=== PATIENT | male | born 1975 | race Caucasian/White ===

== ENCOUNTER 2016-11-10 15:14 | Emergency (ER) | payer SELFPAY ==
--- NOTE | 2016-11-10 17:03 | ED CLINICAL REPORT ---
Clinical Report - Physicians/Mid Levels [facility] [address] [place] [address] 11/10/2016 15:17 Patient: MARYANNE PEÑA Time Seen: 16:40; initial patient contact, initial documentation, patient care assumed. Arrived- By private vehicle. Historian- patient and family. HISTORY OF PRESENT ILLNESS Chief Complaint: FEVER. This started about 5 days ago and is still present. He has had subjective fever. The patient has had muscle aches. No chest pain or altered mental status. He has had dyspnea (at night when trying to sleep). The patient has also had wheezing. He has had a moderate dry cough. Additional history - The patient has had contact with a sick family member. Symptoms of the sick contact include fever and cough. They have had similar symptoms. He is not immunocompromised. No organ transplant. No recent absolute neutrophil count. No recent hospitalization. No new medication recently administered. No history of cancer. No history of HIV illness. No indwelling line. No recent travel. No known exposure to an animal. No drug use. No alcohol recently. No Earl catheter. Similar symptoms previously: None. Recent medical care: Not recently seen/assessed. REVIEW OF SYSTEMS No sputum production, vomiting, headache, sinus pain or sore throat. All systems otherwise negative, except as recorded above. PAST HISTORY See nurses notes. PROBLEMS: Hypertension. --16:01 Maddy Watson R.N. ADDITIONAL SURGERIES: Appendectomy. --16:01 Maddy Watson R.N. SOCIAL HISTORY Never smoker. Occasional alcohol use. Not exposed to second-hand smoke at home. No drug use. No recent travel. FAMILY HISTORY Negative. ADDITIONAL NOTES The nursing notes have been reviewed with agreement regarding the chief complaint, HPI, ROS, PMH and patient medications and allergies. PHYSICAL EXAM Vital Signs: 11/10/2016 15:59 BP: 143/90. HR: 90. RR: 18. O2 saturation: 96%. Temp: 102.4 F. Have been reviewed as abnormal and appear to be correct. Blood pressure normal. Heart rate normal. Respiratory rate normal. Febrile. Oxygen saturation normal. Appearance: Alert. No acute distress. Eyes: Pupils equal, round and reactive to light. Eyes normal inspection. ENT: Ears normal. Nose normal. Pharynx normal. Uvula midline. Neck: Normal inspection. Neck supple. CVS: Normal heart rate and rhythm. Heart sounds normal. Pulses normal. Respiratory: No respiratory distress. Breath sounds normal. Chest nontender. Abdomen: Soft and nontender. Back: Normal inspection. Skin: Skin warm and dry. Normal skin color. No rash. Normal skin turgor. Extremities: Extremities exhibit normal ROM. Extremities nontender. Neuro: Oriented X 3. No motor deficit. No sensory deficit. LABS, X-RAYS, AND EKG Laboratory Tests: Rapid Influenza Screen: (MADELAINE: 11/10/2016 16:00) ( [id number] 11/10/2016 16:28) Final results SPECIMEN DESCRIPTION: NASAL Test Result Flag Units (Reference) RAPID INFLUENZA SCREEN DATE: 11/10/16 INFLUENZA A: NEGATIVE SCREEN FOR INFLUENZA A INFLUENZA B: NEGATIVE SCREEN FOR INFLUENZA B . PROGRESS AND PROCEDURES Course of Care: 11/10/2016 16:25 Temp: 99.5 F. Vital Signs: have been reviewed as normal and appear to be correct. Patient and family counseled in person regarding the patient's stable condition and diagnosis. 17:02. Differential Diagnosis: Other possible considerations: flu, uri, viral illness, bronchitis, sinusitis, pneumonia. Above considerations are based on history, physical exam and laboratory data. Differential diagnosis was discussed with patient and patient's family. Disposition: Discharged home in good and improved condition (17:02). Condition: good and stable. CLINICAL IMPRESSION Acute rhinitis. Acute fever INSTRUCTIONS Alternate Tylenol (Acetaminophen) and Motrin (Ibuprofen) for fever, temperature greater than 101 degrees orally. Take according to label instructions. Do not work today, for two days. Drink plenty of fluids for the next 24 hours until better. Warnings: GENERAL WARNINGS: Return or contact your physician immediately if your condition worsens or changes unexpectedly, if not improving as expected, or if other problems arise. Specifically return if problem worsens. Prescription Medications: Albuterol HFA oral inhaler: inhale 1 to 2 puffs every four to six hours as needed for difficulty breathing. Dispense one (1) unit. No refills. Follow-up: Follow up with your doctor in about five days as needed. Call for an appointment. Summary of care provided to patient. Understanding of the discharge instructions verbalized by patient. (Electronically signed by Noa Reynoso A.R.N.P. 11/10/2016 22:33)
--- NOTE | 2016-11-10 17:03 | ED ORDER SUMMARY ---
..... Patient: MARYANNE PEÑA OrderSheet [facility] VisitID: [id number] [place] [address] 41y, M Registration Date/Time: 11/10/2016 ORDER SHEET Weight: 112.0 kg (stated) Allergies: NKA GENERAL ORDERS: Rapid Influenza Screen (Nasal Pharyngeal) (nasal) Urgent (16:04 11/10/2016 SBalde R.N. per protocol) (16:14 TBergley) MEDICATION ORDERS: Tylenol PO 1,000 mg (NOW) (16:04 11/10/2016 SBalde R.N. per protocol) (16:11 SBalde R.N.) Ibuprofen PO 600 mg (NOW) (16:04 11/10/2016 SBalde R.N. per protocol) (16:11 SBalde R.N.) IV FLUIDS: ORDER SHEET NOTES: [Electronically signed by Artie Byrd R.N. (20:18 11/10/2016)] [Electronically signed by Noa Reynoso (22:33 11/10/2016)] [Electronically locked/signed by Artie Byrd R.N. (20:18 11/10/2016)]
--- NOTE | 2016-11-10 17:03 | ED ORDER SUMMARY ---
..... Patient: MARYANNE PEÑA OrderSheet [facility] VisitID: [id number] [place] [address] 41y, M Registration Date/Time: 11/10/2016 ORDER SHEET Weight: 112.0 kg (stated) Allergies: NKA GENERAL ORDERS: Rapid Influenza Screen (Nasal Pharyngeal) (nasal) Urgent (16:04 11/10/2016 SBalde R.N. per protocol) (16:14 TBergley) MEDICATION ORDERS: Tylenol PO 1,000 mg (NOW) (16:04 11/10/2016 SBalde R.N. per protocol) (16:11 SBalde R.N.) Ibuprofen PO 600 mg (NOW) (16:04 11/10/2016 SBalde R.N. per protocol) (16:11 SBalde R.N.) IV FLUIDS: ORDER SHEET NOTES: [Electronically signed by Artie Byrd R.N. (20:18 11/10/2016)] [Electronically signed by Noa Reynoso (22:33 11/10/2016)] [Electronically locked/signed by Artie Byrd R.N. (20:18 11/10/2016)]
--- NOTE | 2016-11-10 17:03 | ED NURSING NOTES ---
Clinical Report - Nurses [facility] [address] [place] [address] 11/10/2016 15:17 Patient: MARYANNE PEÑA TRIAGE Triage time 15:59 Nov 10 2016. Acuity: LEVEL 4. Chief Complaint: FEVER, COUGH and BODY ACHES. Alert. No acute distress. --16:03 Maddy Watson R.N. 15:59 11/10/16. BP: 143/90. HR: 90. RR: 18. O2 saturation: 96%. Temp: 102.4 F. --16:03 Maddy Watson R.N. Weight: 112 kg stated. Height/Length: 69 inches Per Patient. BMI: 36.5. --15:58 Maddy Watson R.N. Medications Hydrochlorothiazide Oral 25 mg, daily. Lisinopril Oral 10 mg, daily. --16:01 Maddy Watson R.N. Medication/allergy information source: the patient. --16:03 Maddy Watson R.N. Allergies NKA. --16: Maddy Watson R.N. History Arrived by private vehicle. Historian: patient. Accompanied by family. Primary physician (none). ( 5 days of flu like symptoms). Onset. (5 days). 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 PAST MEDICAL HX: Has not received seasonal influenza immunization. SOCIAL HX: Never smoker. Occasional alcohol use. No drug use. NUTRITIONAL RISK ASSESSMENT: The nutritional risk assessment revealed no deficiencies. FUNCTIONAL ASSESSMENT: Functional assessment: no impairments noted. LEARNING NEEDS ASSESSMENT: The learning needs assessment revealed no barriers. SKIN INTEGRITY ASSESSMENT: Skin integrity risk assessment completed. No skin integrity risk identified. --16:03 Maddy Watson R.N. PROBLEMS: Hypertension. --16:01 Maddy Watson R.N. ADDITIONAL SURGERIES: Appendectomy. --16:01 Maddy Watson R.N. Interventions ID band on patient. To waiting room. --16:03 Maddy Watson R.N. PHYSICAL ASSESSMENT GENERAL / NEURO / PSYCH: Alert. Oriented X 4. Appears in no acute distress. HEENT: Pupils equal, round and reactive to light. Mucous membranes are pink. RESPIRATORY: Respirations not labored. CVS: Pulses within normal limits. GI / : Abdomen soft and nontender. SKIN: Skin is warm and dry. --16:26 Artie Byrd R.N. NURSING PROGRESS NOTES Flu swab obtained by RN via nasal swab. --16:04 Maddy Watson R.N. 16:11 11/10/2016 Tylenol (Acetaminophen) PO 1000 mg given. Allergies verified and confirmed 5 rights. --16:11 Maddy Watson R.N. 16:11 11/10/2016 Ibuprofen PO 600 mg given. Allergies verified and confirmed 5 rights. --16:11 Maddy Watson R.N. ( medicated for fever.). --16:11 Maddy Watson R.N. Reassurance given. Two patient identifiers checked. Side rails up x 1. Bed placed in lowest position. Brakes of bed on. ( Pt in no obvious distress placed in room, with daughter). --16:26 Artie Byrd R.N. 16:25 11/10/16. Temp: 99.5 F. --16:26 Artie Byrd R.N. DISPOSITION / DISCHARGE Departure time: 1730. ( Pt ambulated on discharge verbalized understanding discharge instructions and follow up care. Pt also verbalized understanding of medication admin and follow up care). --17:31 Artie Byrd R.N. 17:30 11/10/16. BP: 128/83. HR: 84. RR: 18. O2 saturation: 97%. Temp: 98.9 F. Pain level now 10. --17:31 Artie Byrd R.N. Locked/Released at 11/10/2016 20:18 by Artie Byrd R.N.
--- NOTE | 2016-11-10 17:03 | ED NURSING NOTES ---
Clinical Report - Nurses [facility] [address] [place] [address] 11/10/2016 15:17 Patient: MARYANNE PEÑA TRIAGE Triage time 15:59 Nov 10 2016. Acuity: LEVEL 4. Chief Complaint: FEVER, COUGH and BODY ACHES. Alert. No acute distress. --16:03 Maddy Watson R.N. 15:59 11/10/16. BP: 143/90. HR: 90. RR: 18. O2 saturation: 96%. Temp: 102.4 F. --16:03 Maddy Watson R.N. Weight: 112 kg stated. Height/Length: 69 inches Per Patient. BMI: 36.5. --15:58 Maddy Watson R.N. Medications Hydrochlorothiazide Oral 25 mg, daily. Lisinopril Oral 10 mg, daily. --16:01 Maddy Watson R.N. Medication/allergy information source: the patient. --16:03 Maddy Watson R.N. Allergies NKA. --16: Maddy Watson R.N. History Arrived by private vehicle. Historian: patient. Accompanied by family. Primary physician (none). ( 5 days of flu like symptoms). Onset. (5 days). 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 PAST MEDICAL HX: Has not received seasonal influenza immunization. SOCIAL HX: Never smoker. Occasional alcohol use. No drug use. NUTRITIONAL RISK ASSESSMENT: The nutritional risk assessment revealed no deficiencies. FUNCTIONAL ASSESSMENT: Functional assessment: no impairments noted. LEARNING NEEDS ASSESSMENT: The learning needs assessment revealed no barriers. SKIN INTEGRITY ASSESSMENT: Skin integrity risk assessment completed. No skin integrity risk identified. --16:03 Maddy Watson R.N. PROBLEMS: Hypertension. --16:01 Maddy Watson R.N. ADDITIONAL SURGERIES: Appendectomy. --16:01 Maddy Watson R.N. Interventions ID band on patient. To waiting room. --16:03 Maddy Watson R.N. PHYSICAL ASSESSMENT GENERAL / NEURO / PSYCH: Alert. Oriented X 4. Appears in no acute distress. HEENT: Pupils equal, round and reactive to light. Mucous membranes are pink. RESPIRATORY: Respirations not labored. CVS: Pulses within normal limits. GI / : Abdomen soft and nontender. SKIN: Skin is warm and dry. --16:26 Artie Byrd R.N. NURSING PROGRESS NOTES Flu swab obtained by RN via nasal swab. --16:04 Maddy Watson R.N. 16:11 11/10/2016 Tylenol (Acetaminophen) PO 1000 mg given. Allergies verified and confirmed 5 rights. --16:11 Maddy Watson R.N. 16:11 11/10/2016 Ibuprofen PO 600 mg given. Allergies verified and confirmed 5 rights. --16:11 Maddy Watson R.N. ( medicated for fever.). --16:11 Maddy Watson R.N. Reassurance given. Two patient identifiers checked. Side rails up x 1. Bed placed in lowest position. Brakes of bed on. ( Pt in no obvious distress placed in room, with daughter). --16:26 Artie Byrd R.N. 16:25 11/10/16. Temp: 99.5 F. --16:26 Artie Byrd R.N. DISPOSITION / DISCHARGE Departure time: 1730. ( Pt ambulated on discharge verbalized understanding discharge instructions and follow up care. Pt also verbalized understanding of medication admin and follow up care). --17:31 Artie Byrd R.N. 17:30 11/10/16. BP: 128/83. HR: 84. RR: 18. O2 saturation: 97%. Temp: 98.9 F. Pain level now 10. --17:31 Artie Byrd R.N. Locked/Released at 11/10/2016 20:18 by Artie Byrd R.N.
--- NOTE | 2016-11-10 22:34 | ED DISCHARGE INSTRUCTIONS ---
Patient: MARYANNE PEÑA General Instructions [facility] VisitID: [id number] [place] [address] 41y, M Registration Date/Time: 11/10/2016 Acute rhinitis. Acute fever INSTRUCTIONS Alternate Tylenol (Acetaminophen) and Motrin (Ibuprofen) for fever, temperature greater than 101 degrees orally. Take according to label instructions. Do not work today, for two days. Drink plenty of fluids for the next 24 hours until better. Warnings: GENERAL WARNINGS: Return or contact your physician immediately if your condition worsens or changes unexpectedly, if not improving as expected, or if other problems arise. Specifically return if problem worsens. Prescription Medications: Albuterol HFA oral inhaler: inhale 1 to 2 puffs every four to six hours as needed for difficulty breathing. Dispense one (1) unit. No refills. Follow-up: Follow up with your doctor in about five days as needed. Call for an appointment. Summary of care provided to patient. Understanding of the discharge instructions verbalized by patient. ADDITIONAL INFORMATION Febrile Illness, Uncertain Cause (Adult) You have a fever, but the cause is not certain. A fever is a natural reaction of the body to an illness such as infections due to a virus or bacteria. In most cases, the temperature itself is not harmful. It actually helps the body fight infections. A fever does not need to be treated unless you feel very uncomfortable. Sometimes a fever can be an early sign of a more serious infection. Therefore, you should watch for the signs listed below. Home Care: If signs and symptoms are severe, rest at home for the first 2-3 days. When you resume activity, don't let yourself get too tired. Stay away from cigarette smoke (yours and other peoples). You may use acetaminophen (Tylenol) or ibuprofen (Motrin, Advil) to control fever or pain, unless another medicine was prescribed. NOTE: If you have chronic liver or kidney disease or ever had a stomach ulcer or GI bleeding, talk with your doctor before using these medicines. (Aspirin should never be used in anyone under 18 years of age who is ill with a fever. It may cause severe liver damage.) Your appetite may be poor, so a light diet is fine. Avoid dehydration by drinking 6-8 glasses of fluid per day (water, sport drinks such as Gatorade, sodas without caffeine, juices, tea, soup). Extra fluid will help loosen secretions in the nose and lungs. Wqnw-cqo-kagfmxv products will not shorten the duration of the illness but may be helpful for the following symptoms: cough (Robitussin DM); sore throat (Chloraseptic lozenges or spray); nasal and sinus congestion (Actifed or Sudafed). NOTE: Do not use decongestants if you have high blood pressure. Follow Up with your doctor or as advised if you do not start to improve over the next week. Get Prompt Medical Attention if any of the following occur: Cough with lots of colored sputum (mucus) or blood in your sputum Chest pain, shortness of breath, wheezing or difficulty breathing Severe headache, face, neck, throat or ear pain Feeling drowsy or confused Abdominal pain, repeated vomiting or diarrhea Joint pain or a new rash Burning when urinating Fever of 100.4F (38C) oral or higher, not better with fever medication Feeling weak or dizzy Convulsion Taking Your Child's Temperature If your child feels hot, then check the temperature. Under 3 months : Start with a AXILLARY temperature. If it is above 99.0 F (37.2 C), take a RECTAL temperature. 3 months to 4 years : Measure a RECTAL temperature, or an EAR temperature. Over 4 years : Measure an ORAL temperature. Rectal Temperature is the most accurate. Ear temperature is not as accurate as a rectal or oral temperature, but is more convenient and can be used in the 3 month to 4 year old. Other methods such as plastic strips , forehead devices , and pacifier thermometers are even less accurate and they are not recommended. If you do not know how to use a thermometer, ask your nurse or pharmacist. Oral Method: Normal: 98.6 F (37.0 C). Range of normal: Up to 99.0 F (37.2 C). Recommended Age: Use this method for children older than 4 or 5 years of age, only if cooperative. 1) Wait at least 20 minutes after drinking or eating before taking an oral temperature. 2) Place the tip of a the thermometer under the child's tongue. 3) Have child close lips gently, without biting on the thermometer. 4) Keep under the tongue until the thermometer beeps. 5) Remove thermometer and read the temperature in the display. 6) Clean the thermometer with alcohol, or soap and water after each use. Axillary Method (UNDER THE ARM): Normal: 97.6 F (36.6 C) Range of Normal: Up to 98.6 F (37.0 C) Recommended Age: Use this method for children under 4 years of age or any uncooperative child. 1) Make sure armpit is dry and the child does not have clothing between arm and chest. 2) Place the tip of the thermometer high up in the armpit. 4) Hold the child's arm snug against their body with the thermometer in place until it beeps. 5) Remove thermometer and read the temperature in the display. 6) Clean the thermometer with alcohol, or soap and water after each use. Rectal Method: Normal: 99.6 F (37.6 C). Range of Normal: Up to 100.4 F (38.0 C). Recommended age: Use this method for children under 4 years of age or any uncooperative child. 1) Lubricate the tip of a rectal thermometer with a lubricant such as Vaseline jelly or K-Y jelly. 2) Lay your child face down across your lap, or on his/her side with knees bent toward the chest. Spread buttocks so that the anus can be easily seen. 3) Hold the thermometer between your thumb and index finger with the edge of your hand resting on the buttocks. Slowly and gently insert thermometer into the anus about one inch. The tip should slide in easily. Do not force it since they may cause injury. 4) Do not let go of the thermometer! Hold it carefully in place until it beeps. 5) Remove thermometer and read the temperature in the display. 6) Clean the thermometer with alcohol, or soap and water after each use. When To Seek Help Call your doctor or return here if you have an younger than 3 months with a temperature of 100.4 F (38.0 C) or an older child with a fever higher than 104.0 F (40.0 C). Viral Respiratory Illness [Adult] You have an Upper Respiratory Illness (URI) caused by a virus. This illness is contagious during the first few days. It is spread through the air by coughing and sneezing or by direct contact (touching the sick person and then touching your own eyes, nose or mouth). Most viral illnesses go away within 7-10 days with rest and simple home remedies. Sometimes, the illness may last for several weeks. Antibiotics will not kill a virus and are generally not prescribed for this condition. Home Care: 1) If symptoms are severe, rest at home for the first 2-3 days. When you resume activity, don't let yourself get too tired. 2) Avoid being exposed to cigarette smoke (yours or others). 3) Tylenol (acetaminophen) or ibuprofen (Advil, Motrin) will help fever, muscle aching and headache. (Persons under 18 with fever should not take aspirin since this may cause liver damage.) 4) Your appetite may be poor, so a light diet is fine. Avoid dehydration by drinking 6-8 glasses of fluids per day (water, soft drinks, juices, tea, soup). Extra fluids will help loosen secretions in the nose and lungs. 5) Cnpm-qvn-[id number] cold medicines will not shorten the length of time youre sick, but they may be helpful for the following symptoms: cough (Robitussin DM); sore throat (Chloraseptic lozenges or spray); nasal and sinus congestion (Actifed, Sudafed, Chlortrimeton). Follow Up with your doctor or as advised if you dont improve over the next week. Get Prompt Medical Attention if any of the following occur: -- Cough with lots of colored sputum (mucus) or blood in your sputum -- Chest pain, shortness of breath, wheezing or have trouble breathing -- Severe headache; face, neck or ear pain -- Fever over 100.4 F (38.0 C) for more than three days -- You cant swallow due to throat pain Viral Respiratory Illness W/ Wheezing [Adult] You have an Upper Respiratory Illness (URI) caused by a virus. This illness is contagious during the first few days. It is spread through the air by coughing and sneezing or by direct contact (touching the sick person and then touching your own eyes, nose or mouth). When the infection causes a lot of irritation, the air passages can go into spasm. This causes wheezing and shortness of breath. Most viral illnesses resolve within 7-10 days with rest and simple home remedies, although the illness may sometimes last for several weeks. Antibiotics will not kill a virus and are generally not prescribed for this condition. Home Care: If symptoms are severe, rest at home for the first 2-3 days. When resuming activity, don't let yourself become overly tired. Avoid exposure to cigarette smoke (yours or others). You may use acetaminophen (Tylenol) or ibuprofen (Motrin, Advil) to control pain, unless another medicine was prescribed. [NOTE: If you have chronic liver or kidney disease or ever had a stomach ulcer or GI bleeding, talk with your doctor before using these medicines.] (Aspirin should never be used in anyone under 18 years of age who is ill with a fever. It may cause severe liver damage.) Your appetite may be poor so a light diet is fine. Avoid dehydration by drinking 6-8 glasses of fluids per day (water, soft drinks, juices, tea, soup). Extra fluids will help loosen secretions in the nose and lungs. [id number]-yql-[id number] cold medicines will not shorten the duration of the illness, but may be helpful for the following symptoms: cough (Robitussin DM); sore throat (Chloraseptic lozenges or spray); nasal and sinus congestion (Actifed or Sudafed). [NOTE: Do not use decongestants if you have high blood pressure.] Follow Up with your doctor or as advised if you are not improving over the next week. Get Prompt Medical Attention if any of the following occur: Cough with lots of colored sputum (mucus) or blood in your sputum Chest pain, shortness of breath, wheezing or difficulty breathing Severe headache; face, neck or ear pain Fever of 100.4F (38C) or higher, or as directed by your healthcare provider Unable to swallow due to throat pain Fever Control (Adult) A fever is a natural reaction of the body to an illness. In most cases, the temperature itself is not harmful. It actually helps the body fight infections. A fever does not need to be treated unless you feel very uncomfortable. Home Care If you feel warm, check your temperature. If you feel very uncomfortable and your temperature is at or higher than 100.4F (38C) oral, you may take acetaminophen (Tylenol) every 4 to 6 hours. If you cant take or keep down oral medicine, ask your pharmacist for Tylenol suppositories, which you can get without a prescription. If the fever does not respond to acetaminophen within 1 hour, take ibuprofen (Advil or Motrin). If this works, keep taking the ibuprofen every 6 to 8 hours. Note: If you have chronic liver or kidney disease or ever had a stomach ulcer or GI bleeding, talk with your doctor before using these medications. If either medication alone does not keep the fever down, you may alternate the two medicines every 3 to 4 hours, only if your healthcare provider has instructed you to do so. For example, take Motrin then wait 3 hours, take Tylenol then wait 3 hours, take Motrin, and so on. Follow your healthcare providers instructions exactly. Clothing: Keep clothing light because excess body heat is lost through the skin. The fever will go up if you wear extra layers or wrap in blankets. Fluids: Fever causes the body to lose water through evaporation. Drink plenty of fluids such as water, juice, clear sodas, gamaliel leonides, or lemonade. Do not use aspirin in anyone under 18 years of age who is ill with a fever. It can cause severe liver damage. Follow Up with your doctor or as advised by our staff if you do not get better after 48 hours. Get Prompt Medical Attention if any of the following occur: Fever does not get better after taking fever medication Fast or difficult breathing Earache, sinus pain, stiff or painful neck, headache, repeated diarrhea or vomiting You feel unusually irritable, drowsy, or confused A rash appears You feel weak or dizzy, or that you might faint Albuterol Sulfate Pressurized inhalation, suspension What is this medicine? ALBUTEROL (al BYOO ter ole) is a bronchodilator. It helps open up the airways in your lungs to make it easier to breathe. This medicine is used to treat and to prevent bronchospasm. How should I use this medicine? This medicine is for inhalation through the mouth. Follow the directions on your prescription label. Take your medicine at regular intervals. Do not use more often than directed. Make sure that you are using your inhaler correctly. Ask you doctor or health care provider if you have any questions. Talk to your tube sorter regarding the use of this medicine in children. Special care may be needed. What side effects may I notice from receiving this medicine? Side effects that you should report to your doctor or health hospice spiritual care coordinator as soon as possible: allergic reactions like skin rash, itching or hives, swelling of the face, lips, or tongue breathing problems chest pain feeling faint or lightheaded, falls high blood pressure irregular heartbeat fever muscle cramps or weakness pain, tingling, numbness in the hands or feet vomiting Side effects that usually do not require medical attention (report to your doctor or health hospice spiritual care coordinator if they continue or are bothersome): cough difficulty sleeping headache nervousness or trembling stomach upset stuffy or runny nose throat irritation unusual taste What may interact with this medicine? anti-infectives like chloroquine and pentamidine caffeine cisapride diuretics medicines for colds medicines for depression or for emotional or psychotic conditions medicines for weight loss including some herbal products methadone some antibiotics like clarithromycin, erythromycin, levofloxacin, and linezolid some heart medicines steroid hormones like dexamethasone, cortisone, hydrocortisone theophylline thyroid hormones What if I miss a dose? If you miss a dose, use it as soon as you can. If it is almost time for your next dose, use only that dose. Do not use double or extra doses. Where should I keep my medicine? Keep out of the reach of children. Store at room temperature between 15 and 30 degrees C (59 and 86 degrees F). The contents are under pressure and may burst when exposed to heat or flame. Do not freeze. This medicine does not work as well if it is too cold. Throw away any unused medicine after the expiration date. Inhalers need to be thrown away after the labeled number of puffs have been used or by the expiration date; whichever comes first. Ventolin HFA should be thrown away 12 months after removing from foil pouch. Check the instructions that come with your medicine. What should I tell my health care provider before I take this medicine? They need to know if you have any of the following conditions: diabetes heart disease or irregular heartbeat high blood pressure pheochromocytoma seizures thyroid disease an unusual or allergic reaction to albuterol, levalbuterol, sulfites, other medicines, foods, dyes, or preservatives or trying to get breast-feeding What should I watch for while using this medicine? Tell your doctor or health hospice spiritual care coordinator if your symptoms do not improve. Do not use extra albuterol. If your asthma or bronchitis gets worse while you are using this medicine, call your doctor right away. If your mouth gets dry try chewing sugarless gum or sucking hard candy. Drink water as directed. You have been given the following additional information: Febrile Illness, Uncertain Cause (Adult) Thermometer Use Uri, Viral, No Abx (Adult) Uri, Viral W/ Wheezing (Adult) Fever Control (Adult) Albuterol Sulfate Pressurized inhalation, suspension Do not work today, for two days. (Electronically signed by Noa Reynoso A.R.N.P. 11/10/2016 22:33)
--- NOTE | 2016-11-10 22:34 | ED MAR SUMMARY ---
..... Medication Administration Record [facility] [address] [place] [address] Patient: MARYANNE PEÑA Visit ID: [id number] 41y, M Weight: 112.0 kg Height/Length: 69 in BMI: 36.5 ALLERGIES: NKA Given 16:11/10/2016 Maddy Watson [place] Medication Administered: TYLENOL [PO] (ACETAMINOPHEN), Dose: 1000 mg PO. Medication Ordered: Tylenol PO 1,000 mg (NOW). Given 16:11 11/10/2016 Maddy Watson RHoldenN. Medication Administered: IBUPROFEN [PO], Dose: 600 mg PO. Medication Ordered: Ibuprofen PO 600 mg (NOW).
--- NOTE | 2016-11-10 22:34 | ED MAR SUMMARY ---
..... Medication Administration Record [facility] [address] [place] [address] Patient: MARYANNE PEÑA Visit ID: [id number] 41y, M Weight: 112.0 kg Height/Length: 69 in BMI: 36.5 ALLERGIES: NKA Given 16:11/10/2016 Maddy Watson [place] Medication Administered: TYLENOL [PO] (ACETAMINOPHEN), Dose: 1000 mg PO. Medication Ordered: Tylenol PO 1,000 mg (NOW). Given 16:11 11/10/2016 Maddy Watson RHoldenN. Medication Administered: IBUPROFEN [PO], Dose: 600 mg PO. Medication Ordered: Ibuprofen PO 600 mg (NOW).
--- NOTE | 2016-11-10 22:34 | ED MED RECONCILIATION SUMMARY ---
Patient: MARYANNE PEÑA Medication Reconciliation Report [facility] VisitID: [id number] [address] [place] [address] 41y, M Registration Date/Time: 11/10/2016 Weight: 112.0 kg Height/Length: 69 in. BMI: 36.5 ALLERGIES: NKA The patient's Home Medications are listed below: THE FOLLOWING MEDICATIONS NEED TO BE RECONCILED: Hydrochlorothiazide Oral 25 mg, daily Lisinopril Oral 10 mg, daily The source(s) of the original Home Medication information: patient The following Medications were given to the patient in the Emergency Department: Tylenol [PO] PO 1000 mg, administered: 11/10/2016 4:11:00 PM Ibuprofen [PO] PO 600 mg, administered: 11/10/2016 4:11:00 PM The following Medications were prescribed to the patient: Albuterol HFA oral inhaler: inhale 1 to 2 puffs every four to six hours as needed for difficulty breathing. Dispense one (1) unit. No refills. -- Noa Reynoso A.R.N.P.
--- NOTE | 2016-11-10 22:34 | ED MED RECONCILIATION SUMMARY ---
Patient: MARYANNE PEÑA Medication Reconciliation Report [facility] VisitID: [id number] [address] [place] [address] 41y, M Registration Date/Time: 11/10/2016 Weight: 112.0 kg Height/Length: 69 in. BMI: 36.5 ALLERGIES: NKA The patient's Home Medications are listed below: THE FOLLOWING MEDICATIONS NEED TO BE RECONCILED: Hydrochlorothiazide Oral 25 mg, daily Lisinopril Oral 10 mg, daily The source(s) of the original Home Medication information: patient The following Medications were given to the patient in the Emergency Department: Tylenol [PO] PO 1000 mg, administered: 11/10/2016 4:11:00 PM Ibuprofen [PO] PO 600 mg, administered: 11/10/2016 4:11:00 PM The following Medications were prescribed to the patient: Albuterol HFA oral inhaler: inhale 1 to 2 puffs every four to six hours as needed for difficulty breathing. Dispense one (1) unit. No refills. -- Noa Reynoso A.R.N.P.
== END 2016-11-10 17:30 | disposition home or self-care (01) ==
LOC: ED SRH 15:14
DX: J00 Acute nasopharyngitis [common cold] (principal); R50.9 Fever, unspecified; I10 Essential (primary) hypertension
CPT/HCPCS: 91400